=== PATIENT | male | born 1975 | race Two or more races ===

== ENCOUNTER 2018-09-04 00:12 | Emergency (ER) | payer SELFPAY ==
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
== END 2018-09-04 01:30 | disposition home or self-care (01) ==
LOC: ER 00:12
DX: S01.111A Laceration without foreign body of right eyelid and periocular area, initial encounter (principal); S05.41XA Penetrating wound of orbit with or without foreign body, right eye, initial encounter; W50.0XXA Accidental hit or strike by another person, initial encounter; Y93.89 Activity, other specified; Y92.89 Other specified places as the place of occurrence of the external cause; Y99.8 Other external cause status
CPT/HCPCS: 70200-TC-RT; Z7502; Z7610